=== PATIENT | male | born 1980 | race Caucasian/White ===

== ENCOUNTER → 2016-06-30 | Outpatient (CLI) | payer BC ==
[~2016-06-30] MED LIST: ATOR-22 PO; CETI10TA84 PO; INSULIN PUMP; MULT-506 PO
[2016-07-01 07:38] LABS: ESTIMATED AVERAGE GLUCOSE 171 mg/dl; HA1C FLAG Normal (Normal)
== END | disposition home or self-care (01) ==
LOC: C.LAB1850 15:26
PROVIDERS: ATTEND Nurse Practitioner Adult Health
DX: E78.5 Hyperlipidemia, unspecified (principal); E10.9 Type 1 diabetes mellitus without complications

== ENCOUNTER 2016-09-15 13:43 | Emergency (ER) | payer BC ==
[~2016-09-15] VITALS: Ht 188 cm; Wt 93.8 kg
[~2016-09-15 13:43] MED LIST changes: -ATOR-22 PO; -CETI10TA84 PO; -MULT-506 PO
[2016-09-15 13:45] VITALS: TEMP 37.2; Ht 188 cm; Wt 93.8 kg
[2016-09-15] MEDS ORDERED: ATOR-22 PO (14:21)
[2016-09-15] MEDS ORDERED: CETI10TA84 PO (14:21)
[2016-09-15] MEDS ORDERED: MULT-506 PO (14:21)
--- NOTE | 2016-09-15 14:21 | DIAGNOSTIC IMAGING REPORT ---
LEFT WRIST MIN 3 VIEWS ROUTINE CLINICAL HISTORY: Left volar wrist pain. No injury. Edema noted. Pain COMPARISON: None. DISCUSSION: The bones and joint spaces appear intact. There is no evidence of fracture, dislocation or bony disease. There is no evidence for soft tissue swelling. IMPRESSION: Negative study. The above report was generated using voice recognition software. It may contain grammatical, syntax or spelling errors. Electronically signed by: Paul Schuler M.D. 09/15/2016 2:19 PM Dictated Date/Time: 09/15/2016 2:18 PM
--- NOTE | 2016-09-15 14:49 | EMERGENCY ROOM VISIT NOTE ---
History First contact with patient: 13:56 Chief Complaint: WRIST PAIN Stated Complaint: PAIN IN L WRIST History of Present Illness The patient is a 36 year old male who presents to the Emergency Room via private vehicle with complaints of "pain in left wrist". The patient states she noticed left medial wrist tenderness on Sunday, and has been worse with use. He notes that with rest the pain improves. He is tried ice and heat without any relief. He denies any recent injury to the area. He notes minimal tingling in the last 2 digits of the left hand. He denies any fevers, chills. Review of Systems A complete 6-point Review of Systems was discussed with the patient, with pertinent positives and negatives listed in the History of Present Illness. All remaining Review of Systems questions can be considered negative unless otherwise specified. Past Medical/Surgical History Diabetes Family History Heart disease, blood pressure Social History Smoking Status: Current Some Day Smoker Patient admits to tobacco use. He lives at home with . Current/Historical Medications Scheduled Atorvastatin (Lipitor), 20 MG PO DAILY Cetirizine (Zyrtec), 10 MG PO DAILY Multivitamin (Multivitamin), 1 TAB PO DAILY Miscellaneous Medications [Insulin Pump] Physical Exam Vital Signs Date Time Temp Pulse Resp B/P (MAP) Pulse Ox O2 Delivery O2 Flow Rate FiO2 09/15/16 14:57 87 18 121/80 98 Room Air 09/15/16 13:45 37.2 115 18 140/88 97 Room Air Physical Exam VITAL SIGNS - Vital signs and nursing notes were reviewed. Patient is afebrile , hypertensive at 140/88, tachycardic at a rate of 115 bpm, and is saturating well on room air at 97%. GENERAL -36-year-old male appearing his stated age who is in no acute distress. Communicates well with provider and answers questions appropriately. SKIN - Without rashes. The skin overlying the left wrist is unremarkable. No erythema noted. There is a small amount of edema at the ventral medial aspect of the left wrist. EXTREMITIES - No clubbing or peripheral cyanosis. No pretibial edema present. He is neurovascularly intact left upper extremity. There is minimal reproducible tenderness to palpation overlying the left medial aspect of the wrist. Squeeze test of the wrist does elicit tenderness along the medial aspect of the wrist. No bony tenderness. +5/5 strength noted in UE/LE bilaterally. Medical Decision & Procedures ER Provider Diagnostic Interpretation: LEFT WRIST MIN 3 VIEWS ROUTINE CLINICAL HISTORY: Left volar wrist pain. No injury. Edema noted. Pain COMPARISON: None. DISCUSSION: The bones and joint spaces appear intact. There is no evidence of fracture, dislocation or bony disease. There is no evidence for soft tissue swelling. IMPRESSION: Negative study. The above report was generated using voice recognition software. It may contain grammatical, syntax or spelling errors. Electronically signed by: Paul Schuler M.D. 09/15/2016 2:19 PM Dictated Date/Time: 09/15/2016 2:18 PM Medical Decision Patient was seen and evaluated as above. After obtaining a thorough history and physical examination, radiograph was obtained of the wrist. It appears that the patient is likely experiencing a tenosynovitis. Physical examination reveals no evidence of fracture or infection. X-rays negative for acute process. This time the patient is stable for discharge. He was educated upon conservative management, he was fitted with a thumb spica splint, and was discharged home in good condition. Thumb spica was chosen because of the patient's worsening pain with moving the left thumb. He was educated upon worrisome symptoms which to return, had questions or discharge, and was discharged home in good condition. In the evaluation and treatment of this patient, the following differential diagnoses were considered: Wrist Sprain, Wrist Fracture, Wrist Dislocation, Scapholunate Dissociation, Carpal Fracture, Metacarpal Fracture, Radial Styloid Process Fracture, Ulnar Styloid Process Fracture, or Carpal Tunnel Syndrome. Blood Pressure Screening Patient's blood pressure: Elevated blood pressure Blood pressure disposition: Elevated BP felt to be situational Impression Primary Impression: Wrist pain, left Departure Information Dispostion Home / Self-Care Condition GOOD Referrals Pro,Spike Finney M.D. (PCP) Lucian Yanes M.D. Patient Instructions My [facility] Additional Instructions You have been treated in the Emergency Department for Wrist Pain. For pain control, you can use the following [id number] medicines (if >12 yo): - Regular strength (325mg/tab) Tylenol (acetaminophen) 2 tabs every 4-6 hours as needed. Do not exceed 12 tablets in a 24 hour period. Avoid taking more than 3 grams (3000 mg) of Tylenol per day. This includes any other sources of acetaminophen you may take on a regular basis. - Regular strength (200 mg/tab) Advil (ibuprofen) 1-2 tabs every 4-6 hours as needed. Do not exceed a dose of 3200 mg per day. If this is a recent injury (<24 hrs), ice can be applied to the area of pain for the first 3 days to help decrease pain and inflammation. You have been provided the number for an Orthopaedic Surgeon. You should call this number as soon as possible to establish a follow-up visit from today's Emergency Department visit. Keep the brace/splint in place until evaluated by Orthopedics. Return to the Emergency Department if your current symptoms worsen despite treatment course outlined above, or if you develop any of the following symptoms : intractable pain despite aforementioned treatment course or new onset of numbness or tingling of the fingers. Please return to the emergency department with any new/concerning symptoms.
[2016-09-15 14:57] VITALS: BP 121/80; PULSE 87; O2SAT 98
== END 2016-09-15 14:59 | disposition home or self-care (01) ==
LOC: C.EDB 13:44 → C.EDD 14:59
DX: M25.532 Pain in left wrist (principal); E11.9 Type 2 diabetes mellitus without complications; R00.0 Tachycardia, unspecified; F17.200 Nicotine dependence, unspecified, uncomplicated; Z82.49 Family history of ischemic heart disease and other diseases of the circulatory system

== ENCOUNTER → 2016-11-13 | Outpatient (CLI) | payer BC ==
[~2016-11-13] MED LIST changes: +ATOR-22 PO; +CETI10TA84 PO; +MULT-506 PO
[2016-11-13 17:47] LABS: ALT/SGPT 51 U/L (12-78); AST/SGOT 29 U/L (15-37); BLOOD UREA NITROGEN 11 mg/dl (7-18); BUN/CREATININE RATIO 13.7 (10-20); CALCIUM 8.7 mg/dl (8.5-10.1); CARBON DIOXIDE 26 mmol/L (21-32); CHLORIDE 105 mmol/L (98-107); GLUCOSE 203 mg/dl (70-99); POTASSIUM 3.7 mmol/L (3.5-5.1); SODIUM 138 mmol/L (136-145)
[2016-11-13 17:58] LABS: ALB/GLOB RATIO 1.4 (0.9-2); ALKALINE PHOSPHATASE 63 U/L (45-117); CHOLESTEROL 153 mg/dl (0-200); CHOLESTEROL/HDL RATIO 2.4; HDL CHOLESTEROL 63 mg/dl; TRIGLYCERIDES 129 mg/dl (0-150); VERY LOW DENSITY LIPOPROT CALC 26 mg/dl
[2016-11-14 06:03] LABS: ESTIMATED AVERAGE GLUCOSE 169 mg/dl; HA1C FLAG Normal (Normal)
== END | disposition home or self-care (01) ==
LOC: C.LAB1850 16:33
PROVIDERS: ATTEND Nurse Practitioner Adult Health
DX: Z51.81 Encounter for therapeutic drug level monitoring (principal); E78.5 Hyperlipidemia, unspecified; E10.9 Type 1 diabetes mellitus without complications; E55.9 Vitamin D deficiency, unspecified; Z79.4 Long term (current) use of insulin

== ENCOUNTER → 2017-02-23 | Outpatient (CLI) | payer BC ==
[2017-02-23 12:25] LABS: HEMOGLOBIN A1C 8.1 % (4.5-5.6)
== END | disposition home or self-care (01) ==
LOC: C.LAB1850 10:17
PROVIDERS: ATTEND Nurse Practitioner Adult Health
DX: E10.9 Type 1 diabetes mellitus without complications (principal); Z79.4 Long term (current) use of insulin; R94.6 Abnormal results of thyroid function studies

== ENCOUNTER → 2017-07-04 | Outpatient (CLI) | payer BC ==
[2017-07-04 10:06] LABS: HEMOGLOBIN A1C 7.2 % (4.5-5.6)
== END | disposition home or self-care (01) ==
LOC: C.LAB1850 07:08
PROVIDERS: ATTEND Nurse Practitioner Adult Health
DX: E78.5 Hyperlipidemia, unspecified (principal); E55.9 Vitamin D deficiency, unspecified; R94.6 Abnormal results of thyroid function studies; E10.9 Type 1 diabetes mellitus without complications